=== PATIENT | male | born 2005 | race Caucasian/White ===

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

== ENCOUNTER 2024-05-26 11:46 | Outpatient (AMB) | payer OTHER, MEDICAID, SELFPAY ==
[2024-05-26 11:48] VITALS: BP 136/80; PULSE 98; O2SAT 97; BMI 38.6
--- NOTE | 2024-05-26 11:48 | MHC.PC.OV ---
Vital Signs 05/26/24 11:48 Height 6 ft 2.9 in Weight 308 lb BMI 38.6 BP 136/80 Blood Pressure Location Lt brachial Position Sitting Pulse 98 Pulse Source Pulse Oximeter Pulse Oximetry (%) 97 Oxygen Delivery Method Room Air Intake Visit Reasons: Annual PE Intake Note: Pt is here today for PE. Allergies No Known Allergies Allergy (Verified 05/26/24 11:56) Medication List - Last Reconciled 05/26/24 by Areli Basilio MD amlodipine 10 mg PO DAILY benazepril 40 mg PO DAILY triamterene-hydrochlorothiazid 37.5-25 mg 1 tab PO DAILY Tobacco use date assessed: 05/26/24 Dental Screening Dental Screen Date: 05/26/24 Did you have a dental visit in the last 12 months?: Yes Did you have a dental problem in the last 6 months where you did not have access to dental care?: No Was dental information given to patient?: Patient has dentist [facility] Medical History (Updated 04/07/24 @ 14:41 by Areli Basilio MD) ADHD, predominantly inattentive type Obesity Surgical History (Updated 05/26/24 @ 11:58 by ANTONIO Yuen) No pertinent past surgical history Family History Mother Hypertension Diabetes Father Hypertension Social History Household Members Other:: lives with mother, walks daily for 1 hr Housing: Apartment Patient Tobacco Use Status: Never used Tobacco e-Cigarette/Vaping Use: Never Used service: No Current occupational status: unemployed Current occupational exposures/hazards: No Cognitive needs: Yes Hearing needs: No Vision needs: Yes Questionnaire PHQ-9 Over the last 2 weeks, how often have you been bothered by any of the following problems? 1. Little interest or pleasure in doing things: not at all 2. Feeling down, depressed, or hopeless: not at all 3. Trouble falling or staying asleep, or sleeping too much: not at all 4. Feeling tired or having little energy: several days 5. Poor appetite or overeating: not at all 6. Feeling bad about yourself - or that you are a failure or have let yourself or your family down: not at all 7. Trouble concentrating on things, such as reading the newspaper or watching television: not at all 8. Moving or speaking so slowly that other people could have noticed. Or the opposite - being so fidgety or restless that you have been moving around a lot more than usual: several days 9. Thoughts that you would be better off or of hurting yourself in some way: not at all Total score: 2 Depression Screening Interpretation: Negative Depression Screening Done: Yes 25812 - PHQ-9 Billing: Yes Source: Developed by Drs. Farrukh Welch, Joanne Arroyo, Kris Mullen and colleagues, with an educational tal from [employer]. Thrive Questionnaire Date Thrive assessed: 05/26/24 I am a: Patient What is your living situation today?: I have a steady place to live Within the past 12 months, did the food you bought not last and you didn't have the money to get more?: Never true Within the past 12 months, did you worry whether your food would run out before you got money to buy more?: Never true Do you have trouble paying for medicines?: No Do you have trouble getting transportation to medical appointments?: No Do you have trouble paying your heating and electricity bill?: No Do you have trouble taking care of your child, family member or friend?: No Do you have trouble with day-to-day activities such as bathing, preparing meals, shopping, managing finances, etc.?: No Are you currently unemployed and looking for a job?: No Are you interested in more education?: No Please select the resources that you would like help with: None Currently or been in a relationship where the following occur: No concerns reported THRIVE Score: 0 AUDIT C Alcohol Use Questionnaire (AUDIT-C) 1. How often do you have a drink containing alcohol?: Never 3. How often do you have six or more drinks on one occasion?: Never Total Score: 0 YARELI-7 AMB Questionnaire YARELI-7 Date YARELI - 7 assessed: 05/26/24 Feeling nervous, anxious, or on edge: 0 = Not at all Not being able to stop or control worryin = Not at all Worrying too much about different things: 0 = Not at all Trouble relaxin = Not at all Being so restless that it is hard to sit still: 1 = Several days Becoming easily annoyed or irritable: 1 = Several days Feeling afraid as if something awful might happen: 0 = Not at all Total YARELI-7 score (0-4 normal; 5-9 mild; 10-14 moderate; 15-21 severe): 2 Source: Developed by Drs. Farrukh Welch, Joanne Arroyo, Kris Mullen and colleagues, with an educational tal from [employer]. YARELI-7 Assessment Billing YARELI-7 Assessment Tool: YARELI-7 Assessment 65812 Review of Systems Const All systems reviewed & are unremarkable except as noted in HPI and below Reports no additional complaints Eyes Reports no additional complaints ENT Reports no additional complaints Card Reports no additional complaints Resp Reports no additional complaints GI Reports no additional complaints Reports no additional complaints Physical exam (Primary Care) Vital Signs: Last Vital Signs Pulse 98 05/26/24 11:48 BP 136/80 05/26/24 11:48 Pulse Ox 97 05/26/24 11:48 Oxygen Delivery Method Room Air 05/26/24 11:48 BMI result Body Mass Index 38.6 Tobacco/Smoking Status: Tobacco use Status Tobacco use date assessed 05/26/24 05/26/24 11:49 Patient Tobacco Use Status Never used Tobacco 05/26/24 11:49 e-Cigarette/Vaping Use Never Used 05/26/24 11:49 PHQ-9: PHQ-9 Score PHQ-9: Total score 2 05/26/24 11:59 Depression Screening Interpretation: Negative Thrive Assessment: Date of Thrive Assessment Date Thrive assessed 05/26/24 05/26/24 11:59 Currently or been in a relationship where the following occur: No concerns reported Const General: no acute distress HENMT Head: Yes normal to inspection Ears: hearing grossly normal bilaterally Face and sinus: Yes normal facial exam Throat: Yes posterior oropharynx normal Eyes General: appearance normal, both eyes and all related structures Neck Neck: Yes supple Resp Effort & Inspection: normal respiratory effort Auscultation: clear to auscultation bilaterally Cardio Rhythm: regular rhythm Heart sounds: S1 normal heart sound present and S2 normal heart sound present GI Inspection: Yes normal to inspection Palpation (GI): Soft to palpation Percussion: Yes normal to percussion Auscultation: normal bowel sounds Coding Level of Care Code Est Pt Prev Care 18-39y(69039) Diagnoses Hyperglycemia R73.9 Essential (primary) hypertension I10 Obesity E66.9 Annual physical exam Z00.00 Additional Codes YARELI-7 Assessment Billing - YARELI-7 Assessment Tool: YARELI-7 Assessment 30100 ([id number]) PHQ-9 - 70749 - PHQ-9 Billing: Yes ([id number]) Assessment & Plan Assessment & Plan (1) Hyperglycemia: Code(s): R73.9 - Hyperglycemia, unspecified Category: Medical Plan: Continue ADA diet increase exercise weight loss discussed with the patient. Check A1c today (2) Essential (primary) hypertension: Comment: negative sleep studies 11/2022 Code(s): I10 - Essential (primary) hypertension Category: Medical Plan: Continue current medications (3) Obesity: Code(s): E66.9 - Obesity, unspecified Category: Medical Plan: Increasing physical activity decreasing caloric intake weight loss discussed with the patient. (4) Annual physical exam: Code(s): Z00.00 - Encounter for general adult medical examination without abnormal findings Category: Medical Plan: Well-balanced diet regular physical activity discussed with the patient check blood work today, physical in 1 year Orders: Orders Hemoglobin A1c Today E66.9 - Obesity, unspecified, I10 - Essential (primary) hypertension, R73.9 - Hyperglycemia, unspecified Comprehensive [place]. Panel Fast Today E66.9 - Obesity, unspecified, I10 - Essential (primary) hypertension, R73.9 - Hyperglycemia, unspecified Lipid Panel Today E66.9 - Obesity, unspecified, I10 - Essential (primary) hypertension, R73.9 - Hyperglycemia, unspecified Medications: Refilled benazepril 40 mg PO DAILY 90 tabs 3RF triamterene-hydrochlorothiazid 37.5-25 mg 1 tab PO DAILY 90 tabs 3RF amlodipine 10 mg PO DAILY 90 tabs 3RF
== END 2024-05-26 12:26 | disposition home or self-care (01) ==
PROVIDERS: PCP Internal Medicine; Visit Provider Internal Medicine
DX: Z00.00 Encounter for general adult medical examination without abnormal findings (principal); R73.9 Hyperglycemia, unspecified; E66.9 Obesity, unspecified; Z68.38 Body mass index [BMI] 38.0-38.9, adult; I10 Essential (primary) hypertension

== ENCOUNTER 2024-05-26 11:46 | Outpatient (REF) | payer OTHER, MEDICAID, SELFPAY ==
[2024-05-26 16:12] LABS: MANUAL DIFF FLAG NO
[2024-05-26 16:22] LABS: Appearance Urine Turbid; Basophils Absolute Auto 0.1 X10*3/uL (0.0-0.2); Basophils Percent Auto 0.8 % (0-2); Color Urine Yellow; Eosinophils Absolute Auto 0.1 X10*3/uL (0.0-0.4); Eosinophils Percent Auto 1.5 % (0-4); Glucose Urine UA Negative (Negative); Hematocrit 45.5 % (42.0-52.0); Hemoglobin 14.9 g/dl (14.0-18.0); Imm Gran Abs Auto 0.02 X10*3/uL (0.00-0.03); Imm Gran Pct Auto 0.3 % (0.0-0.4); Leukocyte Esterase Urine Negative (Negative); Lymphocytes Absolute Auto 2.2 X10*3/uL (1.2-4.9); Lymphocytes Percent Auto 30.7 % (20-40); Mean Corpuscular HGB Conc 32.7 g/dl (31.0-36.0); Mean Corpuscular Hemoglobin 27.3 pg (27.0-33.0); Mean Corpuscular Volume 83.3 fL (80.0-98.0); Mean Platelet Volume 10.9 fL (9.4-12.4); Monocytes Absolute Auto 0.5 X10*3/uL (0.1-1.2); Monocytes Percent Auto 7.4 % (2-11); Neutrophils Absolute Auto 4.2 x10*3/uL (2.0-8.3); Neutrophils Percent Auto 59.3 % (45-73); Nitrite Urine Negative (Negative); PH 5.5 (5.0-9.0); Platelet Count 256 X10*3/uL (160-400); Red Blood Count 5.46 X10*6/uL (4.60-5.80); Red Cell Distribution Width 12.2 % (11.0-16.0); Specific Gravity - Urine >= 1.030 (1.005-1.025); Urine Blood Negative (Negative); Urine Ketones Negative (Negative); Urine Protein Negative (Neg-Trace); White Blood Count 7.2 X10*3/uL (4.8-10.8)
[2024-05-26 16:27] LABS: Bacteria Urine None Seen (None Seen); Hyaline Casts Urine 0-2 /LPF (0-2); RBC Urine 0-2 /HPF (0-2); Squamous Epithelial Cell Urine 0-2 /HPF (0-2); WBC Urine 0-5 /HPF (0-5)
[2024-05-26 16:34] LABS: Alanine Aminotransferase 30 U/L (0-40); Albumin Level 4.8 g/dL (3.5-5.0); Alkaline Phosphatase 51 U/L (39-117); Anion Gap 13 (12-20); Aspartate Amino Transferase 24 U/L (5-37); Bilirubin Total 1.4 mg/dL (0.0-1.0); Blood Urea Nitrogen 9 mg/dL (9-16); Calcium 9.8 mg/dL (8.4-10.2); Carbon Dioxide 28 mmol/L (22-29); Chloride 105 mmol/L (96-108); Cholesterol 175 mg/dL (<200); Estimated Glomerular Filt Rate > 60; Glucose Fasting 95 mg/dL (60-99); HDL Cholesterol 34 mg/dL (>40); LDL Cholesterol Calculated 111 mg/dL (<100); Potassium 4.5 mmol/L (3.3-5.1); Sodium 141 mmol/L (135-145); Total Protein 8.1 g/dL (6.5-8.0); Triglycerides 152 mg/dL (<150)
[2024-05-26 16:40] LABS: Estimated Average Glucose 105 mg/dL; Hemoglobin A1C 136.9281 umol/L; Hemoglobin A1c % 5.3 % (<6.0); Total Hemoglobin (HGBA1C) 3964.8972 umol/L
[2024-05-28 16:28] LABS: LDL Cholesterol Direct 114 mg/dL (<100)
== END 2024-05-26 11:47 | disposition home or self-care (01) ==
LOC: HO.HMGCLDS 11:46
PROVIDERS: PCP Internal Medicine; Visit Provider Internal Medicine
DX: Z00.00 Encounter for general adult medical examination without abnormal findings (principal); R73.9 Hyperglycemia, unspecified; I10 Essential (primary) hypertension; E66.9 Obesity, unspecified
CPT/HCPCS: 36415; 80053; 80061; 81001; 83036; 83721; 85025; 96127

== ENCOUNTER 2024-07-14 09:57 | Outpatient (AMB) | payer OTHER, MEDICAID, SELFPAY ==
--- OUTSIDE RECORDS SUMMARY | 2024-07-14 10:00 | XMS_ITS | Clinical Summary ---
Author Organization [facility] Address [id number] [place] [id number] Care Team Providers Care Application Packager Name Role Phone Branch, Halley KIRKPATRICK Primary Care Provider [phone] Medical History Medical History Date Comments Acute sphenoidal sinusitis 11/08 DX:Ac malena sphenoidal sinusitis; COMMENT: CT otherwise normal Expressive language disorder 02/01 DX: Expressive language disorder; COMMENT: nl hearing 04/03 Abnormal involuntary movements(781.0) 11/01 DX:Abnormal involuntary movements(781.0); COMMENT: physiologic tremor, seen by neuro Family History Medical History Relation Name Comments Other: adhd Brother 1 Allergies Brother 2 bro Asthma Mother Hyperlipidemia Mother Relation Name Status Comments Brother 1 Brother 2 Brother 3 Alive Brother 4 Alive Brother 5 Alive Father Alive Mother Alive Sister Alive Social History Tobacco Use Types Packs/Day Years Used Date Smoking Tobacco: Passive Smo ke Exposure - Never Smoker Alcohol Use Standard Drinks/Week Comments Not Asked 0 (1 standard drink = 0.6 oz pur e alcohol) Sex and Gender Information Value Date Recorded Sex Assigned at Not on file Legal Sex Male 9:52 PM EST Gender Identity Not on file Sexual Orientation Not on file Obstetrics History Plan of Treatment Health Maintenance Due Date Last Done Comments Varicella Vaccines (2 of 2 - 2-dose childhood series) 2008 01/18/2005 DTaP,Tdap,and Td Vaccines (6 - Tdap) 01/08/2015 04/13/2008, 09/18/2005, 07/04/2005, Additional history exists HPV Vaccines (1 - Male 3-dose series) 01/08/2019 Meningococcal B Vacine (1 of 2 - Standard) 2020 Annual Well Child Visit (3-21 years old) 04/29/2022 04/13/2008, 02/26/2007 Depression Screening 04/29/2022 HIV Screening 04/29/2022 Hepatitis C Screening 04/29/2022 Social Influencers of Health Screening 04/29/2022 COVID-19 Vaccine ( season) 2024 Influenza Vaccine (#1) 2024 04/13/2008, 2006 Hepatitis B Vaccines Completed 2004, 2004, 2004, Additional history exists HIB Vaccines Completed 07/04/2005, 07/27, 2004, Additional history exists Pneumococcal Vaccine: Pediatrics (0 to 5 Years) and At-Risk Patients (6 to 64 Years) Completed 07/04/2005, 2004, 2004, Additional history exists IPV Vaccines Completed 04/13/2008, 11/2005, 2004, Additional history exists Hepatitis A Vaccines Aged Out No long er eligible based on patient's age to complete this topic MMR Vaccines Aged Out No longer eligi ble based on patient's age to complete this topic Meningococcal ACWY Vaccine Aged Out N o longer eligible based on patient's age to complete this topic RSV Immunization Patients Under 20 months Aged Out No longer eligible based on patient's age to complete this topic Care Teams Application Packager Relationship Specialty Start Date End Date Halley Orona MD [address] [place] [address] PCP - General 02/10/09
[2024-07-14 10:13] VITALS: BP 118/70; PULSE 114; RESP 20; TEMP 37.6; O2SAT 96; BMI 37.5
--- NOTE | 2024-07-14 10:13 | MHC.PC.OV ---
Vital Signs 07/14/24 10:13 Height 6 ft 2.9 in Weight 299 lb BMI 37.5 BP 118/70 Blood Pressure Location Lt brachial Position Sitting Respiration 20 Pulse 114 H Pulse Source Pulse Oximeter Temp 99.6 F Temp Source Oral Pulse Oximetry (%) 96 Oxygen Delivery Method Room Air Intake Visit Reasons: Labs results Intake Note: Pt is here today for a follow up visit on labs. Allergies No Known Allergies Allergy (Verified 07/14/24 10:20) Medication List - Last Reconciled 07/14/24 by Areli Basilio MD amlodipine 10 mg PO DAILY benazepril 40 mg PO DAILY triamterene-hydrochlorothiazid 37.5-25 mg 1 tab PO DAILY Tobacco use date assessed: 07/14/24 Dental Screening Dental Screen Date: 07/14/24 Did you have a dental visit in the last 12 months?: Yes Did you have a dental problem in the last 6 months where you did not have access to dental care?: No Was dental information given to patient?: Patient has dentist HPI Labs results HPI Details Patient presents for the follow-up of hypertension and blood work. He reports sore throat and lower back pain for 3 days. Patient denies fever chills dysuria abdominal pain change in bowel or bladder function. [facility] Medical History (Updated 04/07/24 @ 14:41 by Areli Basilio MD) ADHD, predominantly inattentive type Obesity Surgical History (Updated 05/26/24 @ 11:58 by ANTONIO Yuen) No pertinent past surgical history Family History Mother Hypertension Diabetes Father Hypertension Social History Household Members Other:: lives with mother, walks daily for 1 hr Housing: Apartment Patient Tobacco Use Status: Never used Tobacco e-Cigarette/Vaping Use: Never Used service: No Current occupational status: unemployed Current occupational exposures/hazards: No Cognitive needs: Yes Hearing needs: No Vision needs: Yes Questionnaire PHQ-9 Over the last 2 weeks, how often have you been bothered by any of the following problems? 1. Little interest or pleasure in doing things: not at all 2. Feeling down, depressed, or hopeless: not at all 3. Trouble falling or staying asleep, or sleeping too much: not at all 4. Feeling tired or having little energy: not at all 5. Poor appetite or overeating: not at all 6. Feeling bad about yourself - or that you are a failure or have let yourself or your family down: not at all 7. Trouble concentrating on things, such as reading the newspaper or watching television: not at all 8. Moving or speaking so slowly that other people could have noticed. Or the opposite - being so fidgety or restless that you have been moving around a lot more than usual: not at all 9. Thoughts that you would be better off or of hurting yourself in some way: not at all Total score: 0 Depression Screening Interpretation: Negative Depression Screening Done: Yes 93156 - PHQ-9 Billing: Yes Source: Developed by Drs. Farrukh Welch, Joanne Arroyo, Kris Mullen and colleagues, with an educational tal from [employer]. Thrive Questionnaire Date Thrive assessed: 07/14/24 I am a: Parent/Caregiver What is your living situation today?: I have a steady place to live Within the past 12 months, did the food you bought not last and you didn't have the money to get more?: Never true Within the past 12 months, did you worry whether your food would run out before you got money to buy more?: Never true Do you have trouble paying for medicines?: No Do you have trouble getting transportation to medical appointments?: No Do you have trouble paying your heating and electricity bill?: No Do you have trouble taking care of your child, family member or friend?: No Do you have trouble with day-to-day activities such as bathing, preparing meals, shopping, managing finances, etc.?: No Are you currently unemployed and looking for a job?: I choose not to answer this question Are you interested in more education?: No Please select the resources that you would like help with: None Currently or been in a relationship where the following occur: No concerns reported THRIVE Score: 0 AUDIT C Alcohol Use Questionnaire (AUDIT-C) 1. How often do you have a drink containing alcohol?: Never 3. How often do you have six or more drinks on one occasion?: Never Total Score: 0 YARELI-7 AMB Questionnaire YARELI-7 Date YARELI - 7 assessed: 07/14/24 Feeling nervous, anxious, or on edge: 1 = Several days Not being able to stop or control worryin = Not at all Worrying too much about different things: 0 = Not at all Trouble relaxin = Several days Being so restless that it is hard to sit still: 0 = Not at all Becoming easily annoyed or irritable: 1 = Several days Feeling afraid as if something awful might happen: 0 = Not at all Total YARELI-7 score (0-4 normal; 5-9 mild; 10-14 moderate; 15-21 severe): 3 Source: Developed by Drs. Farrukh Welch, Joanne Arroyo, Kris Mullen and colleagues, with an educational tal from [employer]. YARELI-7 Assessment Billing YARELI-7 Assessment Tool: YARELI-7 Assessment 00360 Review of Systems Const All systems reviewed & are unremarkable except as noted in HPI and below Eyes Reports no additional complaints ENT Reports no additional complaints Card Reports no additional complaints Resp Reports no additional complaints GI Reports no additional complaints Reports no additional complaints Physical exam (Primary Care) Vital Signs: Last Vital Signs Temp 99.6 F 07/14/24 10:13 Pulse 114 H 07/14/24 10:13 Resp 20 07/14/24 10:13 BP 118/70 07/14/24 10:13 Pulse Ox 96 07/14/24 10:13 Oxygen Delivery Method Room Air 07/14/24 10:13 BMI result Body Mass Index 37.5 Tobacco/Smoking Status: Tobacco use Status Tobacco use date assessed 07/14/24 07/14/24 10:15 Patient Tobacco Use Status Never used Tobacco 07/14/24 10:15 e-Cigarette/Vaping Use Never Used 07/14/24 10:13 PHQ-9: PHQ-9 Score PHQ-9: Total score 0 07/14/24 10:23 Depression Screening Interpretation: Negative Thrive Assessment: Date of Thrive Assessment Date Thrive assessed 07/14/24 07/14/24 10:23 Currently or been in a relationship where the following occur: No concerns reported Const General: no acute distress HENMT Head: Yes normal to inspection Face and sinus: Yes normal facial exam Eyes General: appearance normal, both eyes and all related structures Resp Effort & Inspection: normal respiratory effort Auscultation: clear to auscultation bilaterally Cardio Rhythm: regular rhythm Heart sounds: S1 normal heart sound present and S2 normal heart sound present GI Inspection: Yes normal to inspection Palpation (GI): Soft to palpation Extrem Other: Paraspinal tenderness in lower lumbar region, straight leg rising 90 degrees bilaterally Coding Level of Care Code Est Pt Level 3 (01704) Diagnoses URI (upper respiratory infection) J06.9 Hyperglycemia R73.9 Essential (primary) hypertension I10 Additional Codes YARELI-7 Assessment Billing - YARELI-7 Assessment Tool: YARELI-7 Assessment 72657 ([id number]) PHQ-9 - 15499 - PHQ-9 Billing: Yes ([id number]) Assessment & Plan Assessment & Plan (1) URI (upper respiratory infection): Code(s): J06.9 - Acute upper respiratory infection, unspecified Category: Medical Plan: Supportive care discussed with the patient (2) Hyperglycemia: Code(s): R73.9 - Hyperglycemia, unspecified Category: Medical Plan: A1c is 5.3, ADA diet increase exercise weight loss discussed with the patient (3) Essential (primary) hypertension: Comment: negative sleep studies 11/2022 Code(s): I10 - Essential (primary) hypertension Category: Medical Plan: Continue current medications return for physical Orders: Orders Lipid Panel 10 Months I10 - Essential (primary) hypertension, R73.9 - Hyperglycemia, unspecified Complete Blood Count Auto Diff 10 Months I10 - Essential (primary) hypertension, R73.9 - Hyperglycemia, unspecified UA w Microscopic 10 Months I10 - Essential (primary) hypertension, R73.9 - Hyperglycemia, unspecified Comprehensive [place]. Panel Fast 10 Months I10 - Essential (primary) hypertension, R73.9 - Hyperglycemia, unspecified Hemoglobin A1c 10 Months I10 - Essential (primary) hypertension, R73.9 - Hyperglycemia, unspecified
== END 2024-07-14 11:43 | disposition home or self-care (01) ==
PROVIDERS: PCP Internal Medicine; Visit Provider Internal Medicine
DX: J06.9 Acute upper respiratory infection, unspecified (principal); R73.9 Hyperglycemia, unspecified; I10 Essential (primary) hypertension

== ENCOUNTER → 2024-07-14 09:57 | Outpatient (BNVA) | payer OTHER, MEDICAID, SELFPAY | PROVIDERS: PCP Internal Medicine; Visit Provider Internal Medicine | DX: I10 Essential (primary) hypertension (principal); J06.9 Acute upper respiratory infection, unspecified; R73.9 Hyperglycemia, unspecified | CPT/HCPCS: 96127 ==

== ENCOUNTER 2024-11-08 09:18 | Outpatient (REF) | payer OTHER, MEDICAID, SELFPAY ==
--- NOTE | ~2024-11-08 | XR_ITS ---
CLINICAL HISTORY: M25.571 - Pain in right ankle and joints of right foot Exam: AP, lateral, and mortise views of the right ankle. Comparison: None. Findings: Bony alignment is anatomic. No acute fracture. Ankle mortise is intact. No erosions. Impression: Negative right ankle radiographs. This document has been electronically signed by: Colt Lorenz MD on 11/08/2024 11:36:32
== END 2024-11-08 09:19 | disposition home or self-care (01) ==
LOC: HO.HMGCX 09:18
PROVIDERS: PCP Internal Medicine; Visit Provider Nurse Practitioner Family
DX: M25.571 Pain in right ankle and joints of right foot (principal)
CPT/HCPCS: 73610

== ENCOUNTER 2024-11-08 09:18 | Outpatient (AMB) | payer OTHER, MEDICAID, SELFPAY ==
[2024-11-08 09:56] VITALS: BP 116/80; PULSE 89; TEMP 36.7; O2SAT 98; BMI 37.5
--- NOTE | 2024-11-08 09:56 | MHC.OFFWIV ---
Intake Vital Signs 11/08/24 09:56 Height 6 ft 2.9 in Weight 299 lb BMI 37.5 BP 116/80 Blood Pressure Location Lt brachial Position Sitting Pulse 89 Pulse Source Pulse Oximeter Temp 98.0 F Temp Source Oral Pulse Oximetry (%) 98 Oxygen Delivery Method Room Air Intake Visit Reasons: EP RT ankle pain Patient Tobacco Use Status: Never used Tobacco Allergies No Known Allergies Allergy (Verified 11/08/24 10:30) Medication List - Last Reconciled 11/08/24 by JOCELIN GutierrezP- amlodipine 10 mg PO DAILY benazepril 40 mg PO DAILY triamterene-hydrochlorothiazid 37.5-25 mg 1 tab PO DAILY Do you need a note to return to daycare/school/sports/work: No HPI HPI Comments History of Present Illness Details History of Present Illness - The patient is a 19-year-old male presenting with right ankle pain. - Acute onset without trauma on ; pain stable since onset. - Mild pain aggravated by lateral movements, partially relieved by ice. - Denies prior similar episodes; diffuse ankle pain reported. Review of Systems - Musculoskeletal: Reports pain at the right ankle, no preceding trauma, minimal relief with ice. - Neurological: Denies any prior similar episodes. Physical Exam General: Well developed, well nourished, in no acute distress. Appears stated age. Musculoskeletal: Right foot/ankle: Joints are without swelling, redness, or effusions. Overall very tense and difficult to move through passive ROM depsite coaching. He is able to fully move through ROM actively, walks normally w/o antalgia. Neurovasc intact. Does have pain w/ pressure over plantar fascia proximal to the heal. Skin is intact. Pulses: Peripheral pulses are equal and palpable bilaterally. Discussion Notes I discussed the current right ankle pain with the patient, explaining the necessity of obtaining an x-ray to evaluate for potential fractures or structural anomalies. The patient was informed that if the x-ray identifies any fractures, a referral to a Ortho specialist will be arranged. In absence of fracture, a conservative approach with stretching exercises and kfis-ehi-glzaqbj analgesics was recommended. We reviewed the use of the patient's portal for accessing results promptly; otherwise, contact will be made via phone. The patient agreed to prompt notification of any significant findings or need for specialist referral. Assessment and Plan 1. Right ankle pain - Ordered right ankle x-ray. - Referral to orthopedics if fracture observed. Though unlikely. - Conservative management with stretching and analgesics if x-ray is negative. Patient Instructions - x-ray is negative, try gentle stretching exercises. - Use [id number] pain relief if needed. - Monitor for increased pain or swelling. - Message sent w/ results to the portal. Consent Patient was informed and verbally consented to the use of an ambient scribe for clinic note documentation during this visit. Total time spent caring for the patient today was 30 minutes. This includes time spent before the visit reviewing the chart, time spent during the visit, and time spent after the visit on documentation, reviewing laboratory results, diagnostic imaging, medications, performing a medically necessary evaluation, counseling on diagnoses, care coordination, ordering appropriate tests, ordering appropriate medications, review of tests performed by other providers, reporting test results with the patient, communication with other healthcare providers. [facility] Medical History (Updated 11/08/24 @ 11:54 by Shayla Kline, [facility]) ADHD, predominantly inattentive type Obesity Surgical History (Updated 05/26/24 @ 11:58 by ANTONIO Yuen) No pertinent past surgical history Family History Mother Hypertension Diabetes Father Hypertension Social History Household Members Other:: lives with mother, walks daily for 1 hr Housing: Apartment Patient Tobacco Use Status: Never used Tobacco e-Cigarette/Vaping Use: Never Used service: No Current occupational status: unemployed Current occupational exposures/hazards: No Cognitive needs: Yes Hearing needs: No Vision needs: Yes Physical Exam Vital Signs: Last Vital Signs Temp 98.0 F 11/08/24 09:56 Pulse 89 11/08/24 09:56 BP 116/80 11/08/24 09:56 Pulse Ox 98 11/08/24 09:56 Oxygen Delivery Method Room Air 11/08/24 09:56 BMI result Body Mass Index 37.5 Results Reviewed Results Reviewed: [facility] [place] [address] XRay Report Signed Patient: Bharath Whitmore MR#: [id number] : 2005 Acct:[id number] Age/Sex: 19 / M ADM Date: 11/08/24 Loc: HO.HMGCX Attending Dr: Shayla LIZAMA Ordering Physician: Shayla Kline Date of Service: 11/08/24 Procedure(s): XR ankle RT min 3V Accession Number(s): [id number] cc: Areli Basilio MD; Shayla Kline~ CLINICAL HISTORY: M25.571 - Pain in right ankle and joints of right foot Exam: AP, lateral, and mortise views of the right ankle. Comparison: None. Findings: Bony alignment is anatomic. No acute fracture. Ankle mortise is intact. No erosions. Impression: Negative right ankle radiographs. This document has been electronically signed by: Colt Lorenz MD on 11/08/2024 11:36:32 Assessment & Plan Assessment & Plan (1) Right ankle pain: Code(s): M25.571 - Pain in right ankle and joints of right foot Qualifiers: Chronicity: acute Qualified Code(s): M25.571 - Pain in right ankle and joints of right foot Plan . Orders: Orders XR ankle RT min 3V Today M25.571 - Pain in right ankle and joints of right foot Coding Level of Care Code Est Pt Level 4 (96533) Diagnoses Acute right ankle pain M25.571 Chronicity: acute
== END 2024-11-08 11:26 | disposition home or self-care (01) ==
LOC: HO.HMCWIC 09:18
PROVIDERS: PCP Internal Medicine; Visit Provider Nurse Practitioner Family
DX: M25.571 Pain in right ankle and joints of right foot (principal)

== ENCOUNTER → 2024-11-08 10:40 | Outpatient (BNV) | payer OTHER, MEDICAID, SELFPAY | PROVIDERS: PCP Internal Medicine; Visit Provider Radiology Diagnostic Radiology | DX: M25.571 Pain in right ankle and joints of right foot (principal) | CPT/HCPCS: 73610 ==

== ENCOUNTER 2025-05-14 15:57 | Outpatient (AMB) | payer OTHER, MEDICAID, SELFPAY ==
[2025-05-14 16:04] VITALS: BP 118/80; PULSE 83; TEMP 36.8; O2SAT 98; BMI 39.4
--- NOTE | 2025-05-14 16:04 | AM.OFFWIN_ITS ---
Intake Vital Signs 05/14/25 16:04 Height 6 ft 2 in Weight 307 lb BMI 39.4 BP 118/80 Blood Pressure Location Lt brachial Position Sitting Pulse 83 Pulse Source Pulse Oximeter Temp 98.3 F Temp Source Oral Pulse Oximetry (%) 98 Oxygen Delivery Method Room Air Intake Visit Reasons: EP-lower back pain Intake Note: pt presents with low back pain for a few days without any idea of what could have happened Patient Tobacco Use Status: Never used Tobacco Allergies No Known Allergies Allergy (Verified 05/14/25 16:14) Do you need a note to return to daycare/school/sports/work: No HPI HPI Comments History of Present Illness Details History - The patient is a 20-year-old male pres enting with back pain. - He reports the pain started in his glory k and radiated down his leg to his knee and mid-calf. - He states the pain was on the left musa e yesterday but is on the right side today. - Associated symptoms include some numbn ess in the leg and tingling in the toes. - He has tried using a heating pad, whic h did not provide relief. - He denies any recent injuries, heavy l ifting, or changes to his bed. - He denies any history of kidney stones , dysuria, or hematuria, and his bowel habits are normal. - He also denies any chest pain or short ness of breath. - He does not play sports and does not h ave a physically demanding job. - She denies saddle anesthesia, incontin ence, numbness, or tingling. - She denies CP, SOB, abd pain, hematuri a, or dysuria. Physical Exam General: cooperative, healthy appearing and comfortable, patient oriented x3 Head: Normal to inspection, normocephalic/atraumatic Effort & Inspection: Normal respiratory effort and able to speak in complete sentences. Cardiac: RRR, no M/R/G noted. Normal S1 and S2. Respiratory: Clear to auscultation bilaterally. No w/r/r noted. Back/spine: No CVA tenderness bilaterally. Cervical, thoracic and lumbar spine normal to inspection. Cervical ROM normal, no midline spinous tenderness noted. Thoracic ROM normal, lumbar ROM normal. No midline vertebral spinous tenderness noted. No step offs noted. Tenderness to palpation on the right side of the back. No TTP of the thoracic muscles. TTP of the right lumbar paraspinous or paravertebral muscles. DTR are 2+ on the lower extremities noted. Ambulates with a steady gait. Extremities: Straight leg raise test positive on right; Straight leg raise test negative on left; motor strength normal 5/5 bilaterally. Neuro: Sensation intact. Patient was informed and verbally consented to the use of an ambient scribe for clinic note documentation during this visit. [facility] Medical History (Updated 11/08/24 @ 11:54 [facility] ADHD, predominantly inattentive type Obesity Surgical History (Updated 05/26/24 @ 11:58 by ANTONIO Yuen) No pertinent past surgical history Family History Mother Hypertension Diabetes Father Hypertension Social History Household Members Other:: lives with mother, walks daily for 1 hr Housing: Apartment Patient Tobacco Use Status: Never used Tobacco e-Cigarette/Vaping Use: Never Used service: No Current occupational status: unemployed Current occupational exposures/hazards: No Cognitive needs: Yes Hearing needs: No Vision needs: Yes Review of Systems Const All systems reviewed & are unremarkable except as noted in HPI and below Physical Exam Vital Signs: Last Vital Signs Temp 98.3 F 05/14/25 16:04 Pulse 83 05/14/25 16:04 BP 118/80 05/14/25 16:04 Pulse Ox 98 05/14/25 16:04 Oxygen Delivery Method Room Air 05/14/25 16:04 BMI result Body Mass Index 39.4 Assessment & Plan Assessment & Plan (1) Back pain: Code(s): M54.9 - Dorsalgia, unspecified Qualifiers: Back pain location: low back pain Chronicity: acute Back pain laterality: bilateral Sciatica laterality: sciatica of right side Sciatica presence: with sciatica Qualified Code(s): M54.41 - Lumbago with sciatica, right side Plan Most likely strain vs sciatica plan - Prescribed a muscle relaxer, an anti-inflammatory, and a five-day course of prednisone to be sent to the patient's pharmacy. - Advised to continue using a heating pad or take hot showers. - Instructed to avoid heavy lifting, moving items, and bending from the waist. - Recommended sleeping with legs elevated or on his side, and adding support to a soft bed. - Recommended rest for a few days to allow for recovery. - A referral for physical therapy was suggested if the pain does not resolve with medication. - The patient was instructed to go to the emergency room for an MRI if he develops numbness in the groin, urinary or fecal incontinence, or if the pain becomes very intense. Medications: New naproxen 500 mg PO Q12H PRN 20 tabs 0RF pain 7 days cyclobenzaprine 5 mg PO Q8H PRN 20 tabs 0RF Muscle Spasm prednisone 40 mg (2 x 20 mg) PO DAILY 10 tabs 0RF 5 days Coding Level of Care Code Est Pt Level 3 (56010) Diagnoses Acute bilateral low back pain with right-sided sciatica M54.41 Back pain location: low back pain Chronicity: acute Back pain laterality: bilateral Sciatica laterality: sciatica of right side Sciatica presence: with sciatica
--- OUTSIDE RECORDS SUMMARY | 2025-05-14 19:35 | XMS_ITS | Encounter Summary ---
Author Organization [facility] Address [address] [place] [address] Phone Care Team Providers Care Log Grader Name Role Phone Jeramy Villarreal MD Primary Care Provider Areli Basilio MD Primary Care Provider [phone] Encounter Details Date Type Department Care Team (Late st Contact Info) Description 07/06/2022 Transcribe Orders [facility] Specimen Processing [address] [place] [address] Jeramy Villarreal MD [address] [place] [address] Social History Tobacco Use Types Packs/Day Years Used Date Smoking Tobacco: Never Assessed Sex and Gender Information Value Date Recorded Sex Assigned at Not on file Legal Sex Male 6:50 PM EDT Gender Identity Not on file Sexual Orientation Not on file documented as of this encounter Plan of Treatment Not on file documented as of this encounter Visit Diagnoses Not on filedocumented in this encounter Care Teams Log Grader Relationship Specialty Start Date End Date Jeramy Villarreal MD PCP - General Family Medicine 04/24/22 10/16/22 Areli Basilio MD [address] [facility] [place] [address] PCP - General Internal Medicine 10/17/22 documented as of this encounter Additional Source Comments The information contained in this document represents components of the legal health record. It is not the complete legal health record.[facility]
--- OUTSIDE RECORDS SUMMARY | 2025-05-14 19:35 | XMS_ITS | Clinical Summary ---
Author Organization [facility] Address [id number] [place] [id number] Care Team Providers Care Special Education Aide Name Role Phone Yeyo, Halley KIRKPATRICK Primary Care Provider [phone] Medical History Medical History Date Comments Acute [...] on file Sexual Orientation Not on file Plan of Treatment Health Maintenance Due Date Last Done Comments DTaP,Tdap,and Td Vaccines (6 - Tdap) 01/08/2015 04/13/2008, 09/18/2005, 07/04/2005, Additional history exists HPV Vaccines (1 - Male 3-dose series) 01/08/2019 Meningococcal B Vaccine (1 of 2 - Standard) 2020 Depression Screening 05/28/2024 COVID-19 Vaccine ( - season) 2025 Influenza Vaccine (#1) 2025 04/13/2008, 2006 RSV Immunization Adult Patients (1 - 1-dose 75+ series) 01/08/2079 Hepatitis B Vaccines Completed 2004, 2004, 2004, Additional history exists Varicella Vaccines Aged Out 01/18/2005 No longer eligible based on patient's age to complete this topic HIB Vaccines Completed 07/04/2005, 07/27, 2004, Additional history exists Pneumococcal Vaccine: Pediatrics (0 to 5 Years) and At-Risk Patients (6 to 49 Years) Completed 07/04/2005, 2004, 2004, Additional history [...] age to complete this topic Care Teams Special Education Aide Relationship Specialty Start Date End Date Halley Orona MD [address] [place] [address] PCP - General 02/10/09
--- OUTSIDE RECORDS SUMMARY | 2025-05-14 19:35 | XMS_ITS | Clinical Summary ---
Author Organization [facility] Address [address] [place] [address] Phone Care Team Providers Care Electroplating Sales Representative Name Role Phone Areli Basilio MD Primary Care Provider [phone] Allergies No known active allergies Medications amLODIPine (NORVASC) 10 MG tabletIndication s:Hypertension, unspecified type Take 1 tablet (10 mg total) by mouth daily. 90 tablet 6 3 Active lisinopril (PRINIVIL,ZESTRI L) 20 MG tabletIndication s:Hypertension, unspecified type Take 1.5 tablets (30 mg total) by mouth daily. 90 tablet 6 3 Active Additional Information Patient taking differently: 40 mgOral Daily, Reported on 10/17/2022 Active Problems Problem Noted Date Diagnosed Date Anxiety 11/17/2022 11/17/2022 Attention deficit hyperactivity disorder (ADHD) 11/17/2022 11/17/2022 Hypertension 05/23/2022 Mixed dyslipidemia 05/23/2022 Encounters Date Type Department Care Team Description 03/26/2025 8:30 AM EDT Office Visit [facility] [address] [place] [id number] Joshua Soto MD Tremors of nervous system (Primary Dx) from Last 3 Months Social History Tobacco Use Types Packs/Day Years Used Date Smoking Tobacco: Never Assessed Education Answer Date Recorded Are you interested in more education? Not on aleksandra e 09/23/2022 Are you concerned about learning? Not on file 09/23/2022 No 09/23/2022 No 09/23/2022 Digital Access Answer Date Recorded No 10/17/2022 No 10/17/2022 No 10/17/2022 Reliable internet access at home? Not on file 10/17/2022 Device with a working camera? Not on file Sex and Gender Information Value Date Recorded Sex Assigned at Not on file Legal Sex Male 6:50 PM EDT Gender Identity Not on file Sexual Orientation Not on file Last Filed Vital Signs Vital Sign Reading Time Taken Comments Blood Pressure 150/78 10/17/2022 10:45 AM EDT Pulse 111 10/17/2022 10:43 AM EDT Temperature - - Respiratory Rate - - Oxygen Saturation 97% 10/17/2022 10: 43 AM EDT Inhaled Oxygen Concentration - - Weight 138.7 kg (305 lb 12.5 oz) 2022 10:43 AM EDT Height 188.5 cm (6' 2.21 ) 10/17/2022 1 0:43 AM EDT Body Mass Index 39.03 10/17/2022 10:43 AM EDT Plan of Treatment Health Maintenance Due Date Last Done Comments CREATININE LEVEL 2004 POTASSIUM LEVEL 2004 DEPRESSION SCREENING 2016 SMOKING Hx and SMOKELESS TOBACCO SCREENING 01/08/2017 MENINGOCOCCAL VACCINES (B) (1 of 2 - Standard) 2020 HEPATITIS C SCREENING 01/08/2022 HIV ONE-TIME SCREENING (18-65 YEARS) 01/08/2022 INFLUENZA VACCINE (#1) 2024 9, 03/26/2017, 05/17/2016, Additional history exists Adult Td,Tdap Booster 01/13/2025 01/13/2015 COMBINED DTaP,Tdap,Td (7 - Td or Tdap) 01/13/2025 01/13/2015, 04/13/2008, 09/18/2005, Additional history exists COVID-19 VACCINE ( - season) 2025 BLOOD PRESSURE 09/24/2025 03/26/2025 HIB VACCINES Completed 07/04/2005, 07/27, 2004, Additional history exists PNEUMOCOCCAL VACCINES (0-49 years) Aged Out 07/04/2005, 2004, 2004, Additional history exists No longer eligible based on patient's age to complete this topic MMR VACCINES Completed 04/26/2009, 01/18/2005 MENINGOCOCCAL VACCINES (ACWY) Aged Out 01/13/2015 No longer eligible based on patient's age to complete this topic HEPATITIS A VACCINES Completed 06/18/2018, 07/19/19 17 HPV VACCINES Completed 06/18/2018, 07/19/2016 ADOLESCENT UNIVERSAL LIPID SCREENING Completed 07/12/2022 Medical Devices Not on file Procedures Procedure Name Priority Date/Time Associated Diagnosis Comments EXTERNALLY RESULTED CHEMISTRY Routine 07/12/2022 from Last 3 Months or Most Recently Relevant to Health Maintenance Results * (ABNORMAL) EXTERNALLY RESULTED CHEMISTRY (07/12/2022) Sodium - External Potassium - External Chloride - External CO2 - External BUN - External Creatinine, serum - External BUN/Creatinine - External eGFR - External eGFR () - External Glucose - External Calcium - External Phosphorus - External Magnesium - External Albumin - External Bilirubin, total - External Bilirubin, direct - External Bilirubin (conjugated) - External Bilirubin, indirect - External Protein - External Alkaline Phosphatase - External AST - External ALT - External Amylase - External Lipase (u/L) - External Cholesterol, total - External 143 <=170 mg/dL Comment:Done at [facility] Laboratory LDL - External 86 <=110 mg/dL Comment:Done at [facility] Triglycerides - External 74 <=90 mg/dL Comment:Done at [facility] HDL - External 43(A) >=45 mg/dL Comment:Done at [facility] TIBC - External Iron - External Ferritin - External Folate - External Vitamin B12 - External CK - External Cotinine - External C-peptide (ng/mL) - External C-peptide (pmol/L) - External HCG, qualitative - External HCG, total - External NT-proBNP - External PTH - External TSH - External T3 - External Total T4 - External Free T4 - External Vitamin D 25(OH) - External AFP (Tumor Marker) - External Uric Acid - External PSA - External GGT - External Lactate, dehydrogenase - External Ammonia - External Vitamin A - External Alk phos: Intestinal Isoenzymes - External Alk phos: Bone Isoenzymes - External Alk phos: Liver Isoenzymes - External Alk phos: Placental Isoenzymes - External Alk phos: Macrohepatic Isoenzymes - External Cystatin C - External 07/12/2022 us Historical Provider LAB BLOOD ORDERABLES Kriss l Result from Last 3 Months or Most Recently Relevant to Health Maintenance Insurance [facility] [place] [id number] [facility] Care Teams Electroplating Sales Representative Relationship Specialty Start Date End Date Areli Basilio MD 1962 [place] [address] PCP - General Internal Medicine 10/17/22 Additional Source Comments The information contained in this document represents components of the legal health record. It is not the complete legal health record.[facility]
== END 2025-05-14 17:05 | disposition home or self-care (01) ==
PROVIDERS: PCP Internal Medicine; Visit Provider Physician Assistant Medical
DX: M54.41 Lumbago with sciatica, right side (principal)

== ENCOUNTER 2025-05-27 12:58 | Outpatient (AMB) | payer OTHER, MEDICAID, SELFPAY ==
[2025-05-27 13:03] VITALS: BP 134/76; PULSE 100; RESP 18; TEMP 37; O2SAT 98; BMI 38.5
--- NOTE | 2025-05-27 13:03 | MHC.PC.OV ---
Vital Signs 05/27/25 13:03 Height 6 ft 2 in Weight 300 lb BMI 38.5 BP 134/76 Blood Pressure Location Lt brachial Position Sitting Respiration 18 Pulse 100 Pulse Source Pulse Oximeter Temp 98.6 F Temp Source Oral Pulse Oximetry (%) 98 Oxygen Delivery Method Room Air Intake Visit Reasons: Annual PE Intake Note: Pt is here today for PE. Allergies No Known Allergies Allergy (Verified 05/27/25 13:03) Medication List - Last Reconciled 05/27/25 by Areli Basilio MD amlodipine 10 mg PO DAILY benazepril 40 mg PO DAILY triamterene-hydrochlorothiazid 37.5-25 mg 1 tab PO DAILY Tobacco use date assessed: 05/27/25 Dental Screening Dental Screen Date: 07/14/24 HPI Annual PE HPI Details Pt presents for PE. [facility] Medical History (Updated 05/27/25 @ 13:29 by Areli Basilio MD) Annual physical exam Hyperglycemia Essential (primary) hypertension ADHD, predominantly inattentive type Obesity Surgical History No pertinent past surgical history Family History Mother Hypertension Diabetes Father Hypertension Social History Household Members Other:: lives with mother, walks daily for 1 hr Housing: Apartment Patient Tobacco Use Status: Never used Tobacco e-Cigarette/Vaping Use: Never Used service: No Current occupational status: unemployed Current occupational exposures/hazards: No Cognitive needs: Yes Hearing needs: No Vision needs: Yes Questionnaire Thrive Questionnaire Date Thrive assessed: 07/07/24 I am a: Parent/Caregiver What is your living situation today?: I have a steady place to live Within the past 12 months, did the food you bought not last and you didn't have the money to get more?: Never true Within the past 12 months, did you worry whether your food would run out before you got money to buy more?: Never true Do you have trouble paying for medicines?: No Do you have trouble getting transportation to medical appointments?: No Do you have trouble paying your heating and electricity bill?: No Do you have trouble taking care of your child, family member or friend?: No Do you have trouble with day-to-day activities such as bathing, preparing meals, shopping, managing finances, etc.?: No Are you currently unemployed and looking for a job?: I choose not to answer this question Are you interested in more education?: No Currently or been in a relationship where the following occur: No concerns reported THRIVE Score: 0 YARELI-7 AMB Questionnaire YARELI-7 Date YARELI - 7 assessed: 07/14/24 Source: Developed by Drs. Farrukh Welch, Joanne Arroyo, Kris Mullen and colleagues, with an educational tal from [employer]. Review of Systems Const All systems reviewed & are unremarkable except as noted in HPI and below Eyes Reports no additional complaints ENT Reports no additional complaints Card Reports no additional complaints Resp Reports no additional complaints GI Reports no additional complaints Reports no additional complaints Physical exam (Primary Care) Vital Signs: Last Vital Signs Temp 98.6 F 05/27/25 13:03 Pulse 100 05/27/25 13:03 Resp 18 05/27/25 13:03 BP 134/76 05/27/25 13:03 Pulse Ox 98 05/27/25 13:03 Oxygen Delivery Method Room Air 05/27/25 13:03 BMI result Body Mass Index 38.5 Tobacco/Smoking Status: Tobacco use Status Tobacco use date assessed 05/27/25 05/27/25 13:05 Patient Tobacco Use Status Never used Tobacco 05/27/25 13:05 e-Cigarette/Vaping Use Never Used 05/27/25 13:03 Thrive Assessment: Date of Thrive Assessment Date Thrive assessed 07/07/24 05/27/25 13:03 Currently or been in a relationship where the following occur: No concerns reported Const General: no acute distress HENMT Head: Yes normal to inspection Ears: TM's normal bilaterally Face and sinus: Yes normal facial exam Mouth: Normal oral and palatal mucosa present Throat: Yes posterior oropharynx normal Eyes General: appearance normal, both eyes and all related structures Neck Neck: Yes supple Resp Effort & Inspection: normal respiratory effort Auscultation: clear to auscultation bilaterally Cardio Rhythm: regular rhythm Heart sounds: S1 normal heart sound present and S2 normal heart sound present GI Inspection: Yes normal to inspection Palpation (GI): Soft to palpation Percussion: Yes normal to percussion Auscultation: normal bowel sounds Coding Level of Care Code Est Pt Prev Care 18-39y(37467) Diagnoses Essential (primary) hypertension I10 Annual physical exam Z00.00 Obesity E66.9 Assessment & Plan Assessment & Plan (1) Essential (primary) hypertension: Comment: negative sleep studies 11/2022 Code(s): I10 - Essential (primary) hypertension Category: Medical Plan: cont meds (2) Annual physical exam: Code(s): Z00.00 - Encounter for general adult medical examination without abnormal findings Category: Medical Plan: well well-balanced diet regular physical activity weight loss discussed with the patient. He will return for fasting blood work (3) Obesity: Code(s): E66.9 - Obesity, unspecified Category: Medical Plan: Decreasing caloric intake increasing physical activity discussed with the patient Medications: Refilled amlodipine 10 mg PO DAILY 90 tabs 3RF benazepril 40 mg PO DAILY 90 tabs 3RF triamterene-hydrochlorothiazid 37.5-25 mg 1 tab PO DAILY 90 tabs 3RF
--- OUTSIDE RECORDS SUMMARY | 2025-05-27 14:30 | XMS_ITS | Clinical Summary ---
Author Organization [facility] Address [address] [place] [id number] Care Team Providers Care Laborer High Density Press Name Role Phone Yeyo, Halley KIRKPATRICK Primary Care Provider Medical History Medical History Date Comments Acute [...] age to complete this topic Care Teams Laborer High Density Press Relationship Specialty Start Date End Date Halley Orona MD [address] [place] [address] PCP - General 02/10/09
--- OUTSIDE RECORDS SUMMARY | 2025-05-27 14:30 | XMS_ITS | Encounter Summary ---
Author Organization [facility] Address [address] [place] [address] Phone Care Team Providers Care Container Packer Operator Name Role Phone Jeramy Villarreal MD Primary Care Provider Areli Basilio MD Primary Care Provider [phone] Encounter Details Date Type Department Care Team (Late st Contact Info) Description 07/06/2022 Transcribe Orders [facility] Specimen Processing [address] [place] [address] Jeramy Villarreal MD [address] [place] [address] Social History Tobacco Use Types [...] on filedocumented in this encounter Care Teams Container Packer Operator Relationship Specialty Start Date End Date Jeramy Villarreal MD PCP - General Family Medicine 04/24/22 10/16/22 Areli Basilio MD [address] [facility] [place] [address] PCP - General Internal Medicine 10/17/22 documented as of this encounter Additional Source Comments The information contained in this document represents components of the legal health record. It is not the complete legal health record.[facility]
--- OUTSIDE RECORDS SUMMARY | 2025-05-27 14:30 | XMS_ITS | Clinical Summary ---
Author Organization [facility] Address [address] [place] [id number] Phone Care Team Providers Care Straight Truck Driver Name Role Phone Areli Basilio MD Primary Care Provider [phone] Allergies No known active allergies Medications amLODIPine [...] Description 03/26/2025 8:30 AM EDT Office Visit [facility] [address] [place] [id number] Joshua Soto MD Tremors of nervous system [...] - External 143 <=170 mg/dL Comment:Done at [facility] LDL - External 86 <=110 mg/dL Comment:Done at [facility] Triglycerides - External 74 <=90 mg/dL Comment:Done at [facility] HDL - External 43(A) >=45 mg/dL Comment:Done at [facility] TIBC - External Iron - External [...] Most Recently Relevant to Health Maintenance Insurance [facility] [place] [address] [facility] Care Teams Straight Truck Driver Relationship Specialty Start Date End Date Areli Basilio MD [address] [place] [address] PCP - General Internal Medicine 10/17/22 Additional Source Comments The information contained in this document represents components of the legal health record. It is not the complete legal health record.[facility]
== END 2025-05-27 13:37 | disposition home or self-care (01) ==
LOC: HO.HMCC 12:59
PROVIDERS: PCP Internal Medicine; Visit Provider Internal Medicine
DX: Z00.00 Encounter for general adult medical examination without abnormal findings (principal); I10 Essential (primary) hypertension; E66.9 Obesity, unspecified